=== PATIENT | female | born 1955 | race African-American/Black ===

== ENCOUNTER 2018-03-19 21:21 | Emergency (ER) | payer MEDICARE, MEDICAID ==
[~2018-03-19] VITALS: Ht 167.6 cm; Wt 55.0 kg
[2018-03-19] MEDS ORDERED: LORAZEPAM 2MG/ML CPJ IM ONE (22:00)
[2018-03-19 23:10] LABS: BASOPHILS % 1.2 % (0.0-2.0); EOSINOPHILS % 1.9 % (0.0-5.0); HEMATOCRIT. 29.1 % (36.0-48.0); HEMOGLOBIN. 9.4 g/dL (12.0-16.0); LYMPHOCYTES % 23.3 % (20.0-50.0); MEAN CORPUSCULAR HEMOGLOBIN 30.8 pg (28.0-32.0); MEAN CORPUSCULAR VOLUME 95.6 fL (81.0-99.0); MEAN PLATELET VOLUME 6.6 fl (7.4-10.4); MONOCYTES % 13.4 % (2.0-8.0); NEUTROPHILS % 60.2 % (40.0-76.0); PLATELET 364 x1000/uL (130-400); RED BLOOD CELL COUNT 3.05 mill/uL (4.2-5.4); RED CELL DISTRIBUTION WIDTH 19.4 % (11.6-14.6)
[2018-03-19 23:16] LABS: CHLORIDE 103 mEq/L (98-107); INR 1.1; PARTIAL THROMBOPLASTIN TIME 27.5 sec (23.4-31.0); PROTHROMBIN TIME 10.7 sec (9.1-11.1)
[2018-03-19 23:24] LABS: ETHANOL BLOOD < 10 mg/dL
[2018-03-19] MEDS ORDERED: ACETAMINOPHEN 500MG TABLET PO ONE (23:30)
[2018-03-20] MEDS ORDERED: ACETAMINOPHEN 325MG TABLET PO ONE (10:15)
[2018-03-20 13:06] VITALS: BP 112/72
[2018-03-20] MEDS ORDERED: OLANZAPINE 5MG TABLET ODT PO ONE (13:30)
== END 2018-03-20 17:26 | disposition home or self-care (01) ==
LOC: ER 22:23
DX: R51 Headache (principal); R10.9 Unspecified abdominal pain; F41.9 Anxiety disorder, unspecified; F31.9 Bipolar disorder, unspecified
CPT/HCPCS: 36415; 70450; 71045; 80053; 83690; 83880; 84484; 85025; 85610; 85730; 93005; 96372; 99284; G0482; J2060